=== PATIENT | male | born 1995 | race Two or more races ===

== ENCOUNTER 2018-03-11 16:44 | Emergency (ER) | payer MEDICAID, OTHER ==
[~2018-03-11] VITALS: Ht 162.6 cm; Wt 64.4 kg
[2018-03-11 16:19] VITALS: BP 134/85
[2018-03-11] MEDS ORDERED: Isovue-300 100ml vial INJ PRN (17:00)
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
[2018-03-11 17:30] LABS: BASOPHILS % (AUTO) 0.8 % (0.0-2.0); EOSINOPHILS % (AUTO) 0.9 % (0.0-3.0); HEMATOCRIT 41.7 % (42.0-52.0); HEMOGLOBIN 14.5 G/DL (14.2-18.0); MEAN CORPUSCULAR VOLUME 92 FL (80-99); MONOCYTES % (AUTO) 7.7 % (1.0-10.0); NEUTROPHILS % (AUTO) 62.5 % (45.0-75.0); PLATELET COUNT 292 K/UL (150-450); RED BLOOD COUNT 4.52 M/UL (4.70-6.10); RED CELL DISTRIBUTION WIDTH 10.6 % (11.6-14.8); WHITE BLOOD COUNT 8.8 K/UL (4.8-10.8)
[2018-03-11 17:40] LABS: ANION GAP 10 mmol/L (5-15); BLOOD UREA NITROGEN 14 mg/dL (7-18); CALCIUM 8.9 MG/DL (8.5-10.1); CARBON DIOXIDE 24 MMOL/L (21-32); CHLORIDE 106 MMOL/L (98-107); CREATININE 0.9 MG/DL (0.55-1.30); POTASSIUM 3.9 MMOL/L (3.5-5.1); SODIUM 140 MMOL/L (136-145)
[2018-03-11 17:44] LABS: ALANINE AMINOTRANSFERASE 11 U/L (12-78); ALBUMIN 3.9 G/DL (3.4-5.0); ALBUMIN/GLOBULIN RATIO 1.2 (1.0-2.7); ALKALINE PHOSPHATASE 108 U/L (46-116); ASPARTATE AMINO TRANSFERASE 17 U/L (15-37); BILIRUBIN,TOTAL 0.6 MG/DL (0.2-1.0)
[2018-03-11] MEDS ORDERED: Morphine Sulfate 2mg/ml Inj IVP ONE (17:45)
[2018-03-11 17:56] LABS: APPEARANCE,URINE CLEAR; BILIRUBIN, URINE NEGATIVE (NEGATIVE); GLUCOSE, URINE (UA) NEGATIVE (NEGATIVE); KETONES,URINE 1+ (NEGATIVE); LEUKOCYTE ESTERASE ,URINE NEGATIVE (NEGATIVE); NITRITE,URINE NEGATIVE (NEGATIVE); PH,URINE 7 (4.5-8.0); PROTEIN,URINE NEGATIVE (NEGATIVE); UROBILINOGEN,URINE 1 MG/DL (0.0-1.0)
[2018-03-11 17:57] LABS: COLOR,URINE YELLOW
[2018-03-11 19:01] VITALS: BP 134/85
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
== END 2018-03-11 19:01 | disposition home or self-care (01) ==
LOC: EDBD 16:44 → EMR 17:12
DX: S40.021A Contusion of right upper arm, initial encounter (principal); S50.01XA Contusion of right elbow, initial encounter; S30.1XXA Contusion of abdominal wall, initial encounter; V09.9XXA Pedestrian injured in unspecified transport accident, initial encounter; Y92.410 Unspecified street and highway as the place of occurrence of the external cause
CPT/HCPCS: 36415; 71045; 73060; 73080; 74177; 80053; 81003; 83690; 85025; 85610; 85730; 96374; 99284; J2270; Q9967